=== PATIENT | female | born 1955 | race Caucasian/White ===

== ENCOUNTER 2020-01-16 13:12 | Emergency (ER) | payer OTHER ==
[~2020-01-16] VITALS: Ht 165.1 cm; Wt 73.0 kg
[2020-01-16] MEDS ORDERED: ADENOSINE 6 MG/2 ML VIAL ONE ×2 (13:26→13:30)
--- NOTE | 2020-01-16 13:30 | NUR ---
SENT BY DR. RUBIO FOR SVT, HR 204. PT AAOX4, PLACED ON ANIMAL SCIENTIST, SVT. DR. OHARA @ BS. DENIES ANDREW, SOB, DIZZINESS, N/V @ THIS TIME. EKG DONE.
[2020-01-16] MEDS: ADENOSINE 6 MG/2 ML VIAL IVP ONE (13:33)
--- NOTE | 2020-01-16 13:33 | NUR ---
MEDICATED WITH 6 MG OF ADENOSINE IVP. PT CONVERTED TO ST 124. PT QUYNH WELL. DR. OHARA @ BS
[2020-01-16] MEDS ORDERED: METOPROLOL TARTRATE INJ 5 MG/5 ML AMPUL ONE ×2 (13:38→20:00)
[2020-01-16 13:43] LABS: BASOPHILS # (AUTO) 0.1 /CMM (0.0-0.2); BASOPHILS % (AUTO) 1.1 % (0.0-2.0); HEMATOCRIT 45 % (33-45); HEMOGLOBIN 14.8 g/dL (11.5-14.8); LYMPHOCYTES # (AUTO) 2.5 /CMM (0.8-4.8); LYMPHOCYTES % (AUTO) 24.4 % (20.0-44.0); MEAN CORPUSCULAR HGB CONC 33 g/dl (31.0-36.0); MEAN CORPUSCULAR VOLUME 80 fL (82-100); MONOCYTES # (AUTO) 0.5 /CMM (0.1-1.30); MONOCYTES % (AUTO) 5.1 % (2.0-12.0); NEUTROPHILS # (AUTO) 7.1 /CMM (1.8-8.9); NEUTROPHILS % (AUTO) 68.4 % (43.0-81.0); PLATELET COUNT (AUTO) 236 /CMM (150-450); RED BLOOD CELL COUNT(AUTO) 5.66 MIL/uL (4.0-5.2); WHITE BLOOD COUNT (AUTO) 10.4 K/uL (4.3-11.0)
[2020-01-16] MEDS: METOPROLOL TARTRATE INJ 5 MG/5 ML AMPUL IVP ONE (13:44)
[2020-01-16] MEDS ORDERED: ATOR10TA PEG (13:50)
[2020-01-16] MEDS ORDERED: LINA5TAB PO (13:50)
[2020-01-16] MEDS ORDERED: LEVO75TA7 PO (13:50)
[2020-01-16] MEDS ORDERED: LOSA1TAB39 PO (13:50)
[2020-01-16] MEDS ORDERED: METF-440 PO (13:50)
[2020-01-16 13:59] LABS: ALBUMIN 4.2 g/dL (3.4-5.0); BILIRUBIN,DIRECT 0.1 mg/dL (0.0-0.2); BILIRUBIN,TOTAL 0.6 mg/dL (0.2-1.0); CALCIUM, SERUM 9.6 mg/dL (8.5-10.1); CREATININE 1.1 mg/dL (0.6-1.3); POTASSIUM 3.8 mmol/L (3.5-5.1); TOTAL PROTEIN, SERUM 9.2 g/dL (6.4-8.2)
--- NOTE | 2020-01-16 14:05 | NUR ---
PT RESTING COMFORTABLY, VSS. DENIES CP, SOB, DIZZINESS, N/V AT THIS TIME. ON TELE, NSR. WILL CONT TO MONITOR.
--- NOTE | 2020-01-16 15:27 | NUR ---
GAVE MOVESHEET TO ADMITTING TO AUTH INSURANCE
[2020-01-16] MEDS ORDERED: ASPIRIN 81 MG TAB.CHEW ONE (15:51)
[2020-01-16] MEDS: ASPIRIN 81 MG TAB.CHEW PO ONE (15:55)
--- NOTE | 2020-01-16 16:19 | NUR ---
Spoke with Tori outsole caser [phone] requested face sheet and clinicals be faxed to [phone]
--- NOTE | 2020-01-16 16:40 | NUR ---
SARANYA,SECURITY ASSESSOR CALLED, TOLD HER THAT WE WILL ADMIT PATIENT IF THEY ARE UNABLE TO TX SOON.
--- NOTE | 2020-01-16 16:46 | NUR ---
CALL BACK FROM [facility] CLINICALS AND MD NOTES FAXED DIRECTLY TO [facility] [place].
--- NOTE | 2020-01-16 17:06 | NUR ---
FAXED CLINICALS TO [facility]
--- NOTE | 2020-01-16 18:00 | NUR ---
PT SITTING UP COMFORTABLY, VSS. DENIES CP, SOB, DIZZINESS, N/V, ANDREW @ THIS TIME. ON TELE, NSR. WILL CONT TO MONITOR.
--- NOTE | 2020-01-16 18:07 | NUR ---
call back from gui serrano is reviewing clinicals
--- NOTE | 2020-01-16 18:53 | NUR ---
SAEID BEAVER FROM [facility] [phone]. PATIENT ACCEPTED TO [facility] UNDER THE CARE OF DR. BORJAS. [phone] NUMBER TO GIVE REPORT.
--- NOTE | 2020-01-16 19:10 | NUR ---
SAEID BEAVER FROM [facility] [phone] WILL CALL BACK FOR ETA OF TRANSPORTATION.
--- NOTE | 2020-01-16 19:38 | NUR ---
CALLED SAEID BEAVER FROM [facility] AT [phone]. UNABLE TO LEAVE MESSAGE IN VOICEMAIL DUE TO MAILBOX IS FULL.
--- NOTE | 2020-01-16 19:45 | NUR ---
[facility] [address] HERE TO CLASSROOM ASSISTANT PT, REPORT, PAPERWORK AND DISC GIVEN TO CRAIG.
--- NOTE | 2020-01-16 19:54 | NUR ---
CALLED [facility] ED DEPT. REPORT GIVEN TO SHEELA HAGER. PT ENROUTE TO ED VIA ALS, REPORT GIVEN TO CRAIG Luna ([employer] HEAD LINER INSTALLER) FOR CONT OF CARE.
[2020-01-16 20:04] VITALS: BP 200/107
[2020-01-16] MEDS: METOPROLOL TARTRATE INJ 5 MG/5 ML AMPUL IV ONE (20:04)
--- NOTE | 2020-01-16 20:04 | NUR ---
MEDICATED FOR ELEVATED BP PER ERMD ORDER, PT QUYNH WELL.
== END 2020-01-16 20:08 | disposition short-term general hospital (02) ==
LOC: ER 13:16
DX: I47.1 Supraventricular tachycardia (principal); I10 Essential (primary) hypertension; E11.9 Type 2 diabetes mellitus without complications; Z79.899 Other long term (current) drug therapy
CPT/HCPCS: 36415; 71045; 80048; 80076; 84484; 85025; 93005; 96374; 96375; 96376; 99285; J0153; J3490 ×2